=== PATIENT | female | born 2000 | race Caucasian/White ===

== ENCOUNTER 2022-01-28 12:36 | Observation (INO) | payer OTHER ==
[~2022-01-28] VITALS: Ht 160 cm; Wt 87.1 kg
[2022-01-28 15:28] LABS: BUN/CREATININE RATIO 25 (0-10)
[2022-01-28] MEDS ORDERED: FAMOTIDINE20 MG PO (15:43)
[2022-01-28] MEDS ORDERED: FLINTSTONES CO1 EAC1 PO (15:44)
--- NOTE | 2022-01-29 13:45 | NUR ---
LEFT MESSAGE WITH PROVIDER OF CRITICAL LAB 2.4. PT CURRENLTY ON POTASSIUM PROTOCOL.
--- NOTE | 2022-01-29 14:17 | NUR ---
1402- NURSE CALLED OB TO NOTIFY DR. RODRIGUEZ OF PT WANTING TO LEAVE AMA. SPOKE TO NURSE ON OB FLOOR WHO STATED MD WAS IN A DELIVERY BUT SHE WOULD NOTIFY HIM AND CALL BACK. NURSE CALLED BACK, STATED DR. RODRIGUEZ STATED HE WAS UNABLE TO COME TO FLOOR TO SPEAK TO PT DUE TO HIM BEING IN A DELIVERY. STATED TO LET THE PT KNOW THE RISK OF LEAVING AND HE DOES NOT ADVISE HER TO LEAVE. NURSE EDUCATED PT ON RISK OF LEAVING AND NOTIFIED HER OF WHAT DR RODRIGUEZ SAID. PT STATES SHE WANTS TO LEAVE.
== END 2022-01-29 14:23 | disposition left against medical advice (07) ==
LOC: M/S 14:10
PROVIDERS: ADMIT Obstetrics & Gynecology
DX: O99.282 Endocrine, nutritional and metabolic diseases complicating pregnancy, second trimester (principal); E87.6 Hypokalemia; O26.832 Pregnancy related renal disease, second trimester; N15.8 Other specified renal tubulo-interstitial diseases; Z3A.20 20 weeks gestation of pregnancy
CPT/HCPCS: 80048; 83735; 84132; 93005; G0378; G0379; J3475; J3480

== ENCOUNTER 2022-03-25 12:50 | Emergency (ER) | payer OTHER ==
[~2022-03-25 12:50] MED LIST: FAMOTIDINE20 MG PO; FLINTSTONES CO1 EAC1 PO
[2022-03-25 13:33] LABS: HEMOGLOBIN 11.8 gm/dl (12.3-15.3); RED BLOOD COUNT 4.26 M/UL (4.00-5.10); WHITE BLOOD COUNT 9.1 K/UL (4.5-11.0)
[2022-03-25 13:59] LABS: BUN/CREATININE RATIO 22 (0-10)
== END 2022-03-25 18:54 | disposition home or self-care (01) ==
LOC: ER1 12:50 → GENOP 12:50 → EDSTATUS 13:01 → ER1 18:54
PROVIDERS: Obstetrics & Gynecology
DX: O99.283 Endocrine, nutritional and metabolic diseases complicating pregnancy, third trimester (principal); E87.6 Hypokalemia; E83.42 Hypomagnesemia; Z3A.28 28 weeks gestation of pregnancy
CPT/HCPCS: 80053; 83735; 85025; 96374; 96375; 96376; 99284; J3475; J3480